=== PATIENT | female | born 1955 | race Caucasian/White ===

== ENCOUNTER 2018-06-04 14:20 | Inpatient (IN) | payer MEDICARE ==
[2018-06-04 14:51] LABS: Bilirubin Negative (Negative); Blood, Urine Negative (Negative); Clarity Clear (Clear); Glucose, Urine (Dipstick) Negative (Negative); Leukocyte Negative (Negative); Nitrite Negative (Negative); Protein, Urine (Dipstick) Negative (Neg-Trace); Urobilinogen 0.2 mg/dL (0.2-1.0)
--- NOTE | 2018-06-04 16:31 | RAD ---
2 VIEW CHEST: Date: 06/04/18 COMPARISON: 07/09/16. INDICATION: Cough with chills. FINDINGS: There is a right chest port remaining in place. No lobar consolidation, effusion, or discrete pneumot horax. Cardiac silhouette is normal size. Osseous structures intact. IMPRESSION: No focal consolidation. POS: TPC
[2018-06-04 16:53] LABS: Hemoglobin 10.9 g/dL (12.0-16.0); Mean Corpuscular HGB CONC 31.9 g/dL (32.0-36.0); Mean Corpuscular Hemoglobin 29.3 pg (27.0-31.0); Mean Corpuscular Volume 91.9 fL (78.0-98.0); Mean Platelet Volume 6.3 fL (7.4-10.4); Platelet Count 150 thou/uL (130-400); RBC Distribution Width 12.1 % (11.5-14.5); Red Blood Cell (RBC) Count 3.73 mill/uL (4.20-5.40); White Blood Cell (WBC) Count 2.2 thou/uL (4.8-10.8)
[2018-06-04 17:01] LABS: ALT (SGPT) 11 U/L (8-55); AST (SGOT) 13 U/L (5-34); Albumin 3.4 g/dL (3.5-5.0); Alkaline Phosphatase 76 U/L (40-150); Anion Gap 12 mmol/L (10-20); BUN (Urea Nitrogen) 9 mg/dL (9.8-20.1); Bilirubin, Total 0.4 mg/dL (0.2-1.2); Calc. Creatinine Clearance 0 mL/min (70-130); Calcium 7.8 mg/dL (7.8-10.44); Carbon Dioxide 20 mmol/L (22-29); Chloride 112 mmol/L (98-107); Estimated GFR-MDRD 90; Globulin 2.7 g/dL (2.4-3.5); Glucose 83 mg/dL (70-105); Potassium 3.8 mmol/L (3.5-5.1); Protein, Total 6.1 g/dL (6.0-8.3); Sodium 140 mmol/L (136-145)
[2018-06-04 17:07] LABS: Band 3 % (5-11); Eosinophils 10 % (0-10); Lymphocytes 34 % (21-51); MDiff Complete? YES; Monocytes 28 % (0-10); Neutrophil 13 % (42-75); Platelet Morphology Comment Appears Adequate; RBC Morphology Normal; Reactive Lymphocytes 10 % (0-10)
[2018-06-04] MEDS ORDERED: Aluminum & Magnesium Hydroxide 60 ML, diphenhydrAMINE 150 MG, Lidocaine 2% Viscous Solu... SSW PRN (20:42)
[2018-06-04 20:50] LABS: Troponin I Less than 0.010 ng/mL (< 0.028)
[2018-06-04] MEDS: diphenhydrAMINE 25 MG CAP PO PRN (21:39)
[2018-06-05 00:05] LABS: Troponin I Less than 0.010 ng/mL (< 0.028)
[2018-06-05] MEDS ORDERED: Sodium Chloride 0.9% 1,000 ML IV SCH (09:00)
[2018-06-05] MEDS ORDERED: Ondansetron PF 4 MG/2 ML Vial IVP PRN (09:15)
[2018-06-05] MEDS ORDERED: Calcium Carbonate 500 MG ChewTAB PO PRN (09:15)
[2018-06-05] MEDS ORDERED: Bisacodyl 10 MG SUPP PR PRN ×2 (09:15→09:25)
[2018-06-05] MEDS ORDERED: Ondansetron ODT 4 MG TAB PO PRN (09:15)
[2018-06-05] MEDS ORDERED: Eucerin (Mineral Oil/Petrolatum,White) 30 gm Jar TOP PRN (09:24)
[2018-06-05] MEDS ORDERED: Milk Of Magnesia 30 ML UDCUP PO PRN (09:25)
[2018-06-05] MEDS ORDERED: Polyethylene Glycol 3350 17 GM Packet PO PRN (09:25)
[2018-06-05] MEDS ORDERED: diphenhydrAMINE 25 MG CAP PO PRN (09:27)
[2018-06-05 09:35] LABS: Albumin 4.1 g/dL (3.5-5.0); Anion Gap 16 mmol/L (10-20); BUN (Urea Nitrogen) 12 mg/dL (9.8-20.1); BUN/Creatinine Ratio 15.58; Calc. Creatinine Clearance 92 mL/min (70-130); Calcium 9.3 mg/dL (7.8-10.44); Carbon Dioxide 21 mmol/L (22-29); Chloride 108 mmol/L (98-107); Estimated GFR-MDRD 76; Glucose 96 mg/dL (70-105); Magnesium 2.2 mg/dL (1.6-2.6); Phosphorus 3.3 mg/dL (2.3-4.7); Potassium 4.9 mmol/L (3.5-5.1); Sodium 140 mmol/L (136-145)
[2018-06-05 09:49] LABS: Hemoglobin 13.7 g/dL (12.0-16.0); Mean Corpuscular HGB CONC 32.7 g/dL (32.0-36.0); Mean Corpuscular Hemoglobin 29.7 pg (27.0-31.0); Mean Corpuscular Volume 90.8 fL (78.0-98.0); Mean Platelet Volume 7.8 fL (7.4-10.4); Platelet Count 165 thou/uL (130-400); RBC Distribution Width 11.6 % (11.5-14.5); Red Blood Cell (RBC) Count 4.61 mill/uL (4.20-5.40); White Blood Cell (WBC) Count 2.6 thou/uL (4.8-10.8)
[2018-06-05 10:08] LABS: Folate (Folic Acid) 12.9 ng/mL (7.0-31.4)
--- NOTE | 2018-06-05 10:17 | HP ---
PRIMARY CARE PHYSICIAN: The patient has seen Dr. Pineda in the past. She follows oncologist at [facility]. CHIEF COMPLAINT: Generalized weakness with cough, shortness of breath, fever, and chest pain of 2 days duration. The patient also had a syncopal episode yesterday. HISTORY OF PRESENT ILLNESS: The patient is a 62-year-old female with idiopathic neutropenia, presented to the emergency room with above symptoms. Over the past week or so, the patient has been feeling generally weak and fatigued. She gets lightheaded most of the time when she stands up and when she bends down to pick up attendant something. Over the last 2 days, the patient has productive cough along with rhinorrhea, nasal congestion, and chills. Her granddaughter had similar symptoms. She has been feeling generally weak and fatigued. She also developed sores on her left side of the lips over the last 3 to 4 days. She has not been eating and drinking well. Yesterday, the patient had a syncopal episode, where she gradually landed on the floor without significant injuries. She was alone at that time. She does not know how long she passed out for. She was diaphoretic, lightheaded, and had some ringing in the ears prior to syncope. She denies any double vision, blurring of vision, facial asymmetry, weakness, or numbness of any of her extremities. In the emergency room, initial vital signs showed temperature 98.7, respirations of 16, pulse of 84 with a blood pressure 120/78. Orthostatic vitals were positive in the emergency room. She received 1 L of IV fluid. EKG showed nonspecific ST-T wave changes. PAST MEDICAL HISTORY: 1. Idiopathic neutropenia, followed by [facility]. 2. Neuropathy of unclear etiology. 3. Hiatal hernia. 4. Fibromyalgia. 5. Suspected autoimmune disease, followed at [facility]. PAST SURGICAL HISTORY: 1. Bone marrow aspiration at [facility]. 2. . 3. Hysterectomy. 4. Tumor removal from the back of her head. 5. Anxiety and depression. ALLERGIES: THE PATIENT IS ALLERGIC TO PENICILLIN AND SULFA. CURRENT HOME MEDICATIONS: 1. Zoloft 100 mg daily. 2. Aleve as needed. SOCIAL HISTORY: The patient currently lives at home with her family. She denies any alcohol, tobacco, or drug use. FAMILY HISTORY: Negative for premature coronary artery disease. REVIEW OF SYSTEMS: The patient has on and off chest discomfort, which is dull with some numbness in the left arm. She denies any focal neurologic deficit. She has on and off nausea with diarrhea and constipation. All other review of systems were reviewed and were found negative. PHYSICAL EXAMINATION: VITAL SIGNS: As discussed above. GENERAL: A 62-year-old female, ill-appearing, in no apparent distress. HEENT: Head, atraumatic and normocephalic. Sclerae anicteric. Erythematous ulcers over the left side of the lip noted. There were questionable white patches on the backside of the tongue. NECK: Supple. No JVD appreciated. No carotid bruit. LUNGS: Clear to auscultation bilaterally. No wheezing, rales, or rhonchi. HEART: S1 and S2 present. Regular rate and rhythm. No rubs or gallops appreciated. ABDOMEN : Soft and nontender. Bowel sounds present. EXTREMITIES: No edema or calf tenderness. NEUROLOGY: Grossly nonfocal. Moves all 4 extremities. The patient was generally weak. Power was 4 to 5/5 in all extremities. SKIN: Warm and dry. LYMPH NODE: No palpable lymph nodes in the neck. PERIPHERAL VASCULAR: Radial pulses palpable bilaterally. MUSCULOSKELETAL: No joint swelling or tenderness. LABORATORY FINDINGS: WBC 2.2 with 13% neutrophil and 3% bandemia, platelet count 150 with hemoglobin 10.9, hematocrit 34.3. Chemistry showed sodium 140, potassium 3.8, chloride 112, bicarb 20, BUN 9, and creatinine 0.67. Troponin was negative. Albumin 3.4. Urinalysis was negative. Influenza testing was negative. Chest x-ray by my review was negative for infiltrate. EKG by my review as discussed above. IMPRESSION: 1. Neutropenic fever of unclear etiology, suspected viral etiology. 2. Syncope secondary to orthostatic hypotension. The patient had positive orthostatic vital signs in the emergency room. Her blood pressure dropped to 89/64 on standing along with dizziness. 3. Atypical chest discomfort with negative troponins. 4. Idiopathic neutropenia, followed at [facility]. 5. Chronic kidney disease, stage 2. 6. Mild protein-calorie malnutrition. 7. Generalized weakness, multifactorial. 8. Anemia, normochromic normocytic. 9. Anxiety. 10. Depression, mild, stable. The patient denies any suicidal ideation. 11. Neuropathy of unclear etiology. 12. Hiatal hernia. 13. Suspected irritable bowel syndrome. PLAN: The patient will be monitored in the telemetry unit due to chest discomfort. Echocardiogram will be obtained. We will start her on acyclovir. Infectious Disease and Oncology will be consulted. IV fluids. We will check orthostatic vitals every morning. The patient will require 3 to 4 days for stabilization given her significant weakness and positive orthostatic vital signs. Neutropenic precautions due to significant neutropenia. Vital signs every 4 hourly. We will check vitamin B12, folic acid, TSH, respiratory viral panel, and cortisol. Plan of care was discussed with the patient in detail. She stated understanding. Job ID: [id number]
[2018-06-05] MEDS: Sodium Chloride 0.9% 1,000 ML IV SCH ×2 (10:20→20:58)
[2018-06-05 10:41] LABS: Platelet Morphology Comment PLT clumps seen-ADEQ
[2018-06-05 11:07] LABS: Eosinophils 6 % (0-10); Lymphocytes 35 % (21-51); MDiff Complete? YES; Monocytes 24 % (0-10); Neutrophil 10 % (42-75); Reactive Lymphocytes 23 % (0-10)
--- NOTE | 2018-06-05 13:29 | CON ---
DATE OF CONSULTATION: 06/05/2018 HISTORY OF PRESENT ILLNESS: Ms. Morris is a 62-year-old female with a history of idiopathic neutropenia, which is long-standing since at least . She has been seen in our clinic as well as at [facility] and at [facility] over the last several years for this. She is intolerant to Neupogen, has taken in the past and states it makes her "deathly ill." She presents with 3-4 days of complains of oral ulcers as well as fever at home and was neutropenic in the emergency room. She states that the ulcer on the left side of her mouth is significant and quite painful. She has not been able to take p.o. intake and she has lost some weight. She has had some diarrhea off and on. In the past, she has required IV gammaglobulin for prophylaxis, but she had not had this in several years. She is difficulty with IVs and does have a Mediport, but it is currently not accessed. PAST MEDICAL HISTORY: 1. Idiopathic neutropenia, longstanding. Her last infection was 9 months ago. 2. Neuropathy. 3. Fibromyalgia. 4. Probable autoimmune disease of not otherwise specified. MEDICATIONS: 1. Tylenol p.r.n. 2. Acyclovir 400 mg IV q.8 hours. 3. Dulcolax 10 mg [place] daily p.r.n. 4. Tums p.r.n. 5. Benadryl 25 mg p.o. q.4 hours p.r.n. 6. Folic acid 1 mg p.o. daily. 7. Milk of magnesia 30 mL p.o. daily p.r.n. 8. Mineral oil p.r.n. 9. Multivitamins 1 tab p.o. daily. 10. Zofran 4 mg p.o. q.6 hours p.r.n. 11. Zofran 4 mg IV q.6 hours p.r.n. 12. MiraLax p.r.n. 13. Senakot 1 tab p.o. b.i.d. 14. Zoloft 100 mg p.o. at bedtime. ALLERGIES: PENICILLINS AND SULFA. SOCIAL HISTORY: She denies tobacco, alcohol. She lives here to be closer to her daughter and son-in-law, her son-in-law is in bindery worker school and they will be moving in July or August back to [place]. FAMILY HISTORY: Her mother did of myelodysplastic syndrome. REVIEW OF SYSTEMS: A 10-point review of systems is positive for intermittent chest pain as well as shortness of breath. She has had hypotension and low blood pressure when she stands up. She has had poor oral intake. She has had diarrhea and constipation from time to time. Her weight has been stable. PHYSICAL EXAMINATION: VITAL SIGNS: Temperature is 97.9, pulse 75, respirations 12, 02 saturations 95% on room air, blood pressure sitting 107/55, blood pressure standing 97/50. GENERAL: She is in no acute distress, quite pleasant. HEENT: Extraocular muscles are intact. Pupils are reactive to light. She does have oral ulcers. NECK: Supple without lymphadenopathy. CARDIOVASCULAR: Regular rhythm. LUNGS: Clear to auscultation bilaterally. EXTREMITIES: No edema, no clubbing, no ecchymosis. LABORATORY DATA: White blood cell count 2.6, 10% neutrophils, 35% lymphocytes, 23% reactive lymphocytes, 24% monocytes. Hemoglobin 13.7, platelets 165. Her electrolytes are normal with the exception of a chloride of 108 and CO2 of 21, B12 1517, folic acid 12.9, TSH 0.8, cortisol 11, albumin 4.1. IMAGING: Chest x-ray done in the emergency room shows no acute cardiopulmonary process. ASSESSMENT: Ms. Morris is a 62-year-old female with: 1. Idiopathic neutropenia. 2. Autoimmune disease, not otherwise specified. 3. History of hypogammaglobulinemia. 4. Oral ulcers with febrile neutropenia, possibly viral. 5. Intolerant to Neupogen. PLAN: 1. She is already on acyclovir. 2. I would recommend we add IV Levaquin just in case she has any bacterial infection and since she is in the hospital, it should be reasonable. 3. We will not give her Neupogen unless she becomes unstable. 4. Check immunoglobulins to make sure she does not need IVIG. 5. I would recommend we access her Mediport. 6. We will follow with you. Job ID: [id number]
[2018-06-05] MEDS: metroNIDAZOLE 500 MG in Premix Bag 1 BAG IVPB SCH (18:18)
--- NOTE | 2018-06-05 20:01 | CON ---
DATE OF CONSULTATION: 06/05/2018 REASON FOR CONSULTATION: Neutropenia, fever, and mouth ulcers. HISTORY OF PRESENT ILLNESS: A 62-year-old, who I had seen in 2014, who has a history of chronic neutropenia since the age of 23. The patient has had multiple consultations with various [employer] in [facility] and elsewhere with 5 or 6 bone marrow biopsies. I have reviewed those biopsies and one of them apparently, diagnosis with a mild myelodysplastic syndrome, but according to the patient at [facility], they felt that the changes were more likely due to the Neupogen administration than true MDS. She has in the past received Neupogen as well as immunoglobulin according to records at [facility]. Her maximum neutrophil count went up to 16,000 and will vary anywhere from 100 to mid [address] to 2500s depending on the schedule of her Neupogen administration. She also has had immunoglobulin administration in the past with various results, the final diagnosis is not clear, if it is due to production deficiency or peripheral destruction. One of the notes from the [facility] passenger train at [facility] observes that in 1 episode there was a rapid decrease from 16,000, down to 40 in her neutrophil count, which would suggest that she was having peripheral destruction of the cells. For that reason, immunoglobulin has been attempted in the past again with various results. She has not been to [facility] after she went back to see the [facility] oncologist. At this time, she is admitted with fever, chest pain, and syncopal event. She felt weak and fatigued. She had recrudescence of mouth sores with some productive cough. Apparently, there was a near syncopal event without injuries. No headaches. No visual symptoms. A little bit of cough. No chest pain. No abdominal pain or diarrhea. No genitourinary symptoms. PAST MEDICAL HISTORY: Neutropenia either autoimmune or idiopathic variously treated with Neupogen and immunoglobulin by 5 or 6 different hematologists in the past. She has had 5 or 6 different bone marrow biopsies and suspicion was that she had autoimmune neutropenia in view of the rapid destruction of neutrophils that has been documented in the past. Past surgical history also includes hysterectomy, , some tumor in the skin of the back of the scalp, anxiety, and depression. ALLERGIES: PENICILLIN AND SULFA. THE ALLERGY OF PENICILLIN IS NOT WELL DOCUMENTED. I AM NOT SURE THAT SHE IS TRULY ALLERGIC TO IT. SOCIAL HISTORY: Lives with family. No smoking. No drug use. FAMILY HISTORY: Noncontributory. PHYSICAL EXAMINATION: VITAL SIGNS: Current exam; T-max 98.9, blood pressure 120/69, pulse 75, respirations 12 to 16, and O2 saturation 95% to 96%. SKIN: Without any skin lesions. The patient has a peripheral IV access and is voiding in the toilet. No lymphadenopathy. HEENT: Ocular movements conjugate. Nasal passages patent. Oral cavity with a fairly large irregular deep ulcer in the left side of the under lip region. No gum lesions. No oropharyngeal lesions noted. NECK: Supple. LUNGS: Symmetric clear breath sounds. HEART: S1 and S2. Regular rate. The right subclavian port is accessed, but no inflammatory changes or tenderness. ABDOMEN: Soft, not distended or tender. No ascites. No bladder distention. EXTREMITIES: No joint inflammatory activity. No edema. Pulses 1+ in dorsalis pedis. She moves extremities equally. Cognitive function appears to be intact. NEUROLOGIC: Nonfocal. LABORATORY DATA: White cell count is 2.2 and now 2.6 with a total neutrophil count of about 260. Sodium 140 and creatinine 0.77. Liver profile normal. Albumin 3.4. Vitamin B12 normal. Urinalysis normal. Influenza test was negative. Chest x-ray with no focal consolidation. She has a CT of chest in 2016 with no evidence of pulmonary embolism. There is a brain MRI from April 2015 with normal findings. ASSESSMENT AND PLAN: Chronic neutropenia, which in the past has variously responded to Neupogen and immunoglobulin. Some elements of it have an autoimmune features with rapid decrease in neutrophils overnight almost. She has had numerous bone marrow biopsies, various hematologists. Has had issues with obtaining immunoglobulin and Neupogen, has felt adverse reactions from Neupogen and lately the [facility] has reportedly contraindicated Neupogen administration to her. It is not clear what the management regimen they had recommended for her, but now she presents with severe neutropenia again and I probably would administer Neupogen; however, she declines it. In the past, there is obvious clinical response to Neupogen administration. The patient has those ulcers, which will be sampled for herpes simplex PCR and we will continue antimicrobial therapy and follow up. She may need anaerobic coverage added to her current antimicrobial or combination of cefepime with Flagyl that probably would work better than levofloxacin. Job ID: [id number]
[2018-06-05] MEDS: Senokot S 8.6-50 MG TAB PO SCH (20:59)
[2018-06-05] MEDS: diphenhydrAMINE 25 MG CAP PO PRN (21:01)
[2018-06-05] MEDS: Cefepime 1 GM in Sodium Chloride 0.9% 100 ML IVPB SCH (21:02)
[2018-06-06] MEDS: metroNIDAZOLE 500 MG in Premix Bag 1 BAG IVPB SCH (03:10)
[2018-06-06] MEDS: Sodium Chloride 0.9% 1,000 ML IV SCH ×3 (04:20→13:58)
[2018-06-06] MEDS: Cefepime 1 GM in Sodium Chloride 0.9% 100 ML IVPB SCH (05:31)
[2018-06-06 06:25] LABS: Reticulocyte Count 0.7 % (0.5-1.5)
[2018-06-06 06:36] LABS: Hemoglobin 12.8 g/dL (12.0-16.0); Lymphocytes 58 % (21-51); MDiff Complete? YES; Mean Corpuscular HGB CONC 33.5 g/dL (32.0-36.0); Mean Corpuscular Volume 89.7 fL (78.0-98.0); Monocytes 6 % (0-10); Neutrophil 36 % (42-75); Platelet Count 188 thou/uL (130-400); Platelet Morphology Comment Appears Adequate; RBC Distribution Width 11.3 % (11.5-14.5); RBC Morphology Normal; Red Blood Cell (RBC) Count 4.25 mill/uL (4.20-5.40); White Blood Cell (WBC) Count 2.8 thou/uL (4.8-10.8)
[2018-06-06 06:39] LABS: Albumin 3.4 g/dL (3.5-5.0); Anion Gap 13 mmol/L (10-20); BUN (Urea Nitrogen) 10 mg/dL (9.8-20.1); BUN/Creatinine Ratio 12.99; Calc. Creatinine Clearance 92 mL/min (70-130); Calcium 8.7 mg/dL (7.8-10.44); Carbon Dioxide 19 mmol/L (22-29); Chloride 110 mmol/L (98-107); Estimated GFR-MDRD 76; Glucose 97 mg/dL (70-105); Magnesium 2.4 mg/dL (1.6-2.6); Phosphorus 3.4 mg/dL (2.3-4.7); Sodium 137 mmol/L (136-145)
[2018-06-06] MEDS ORDERED: diphenhydrAMINE 25 MG CAP PO PRN (08:19)
[2018-06-06] MEDS ORDERED: HYDROcodone/Acetaminophen 5/325 mg Tablet PO PRN (08:19)
[2018-06-06] MEDS ORDERED: Ibuprofen 200 MG TAB PO PRN (08:19)
[2018-06-06] MEDS ORDERED: Glycerin Adult Supp. (12 ct jar) PR PRN (08:19)
[2018-06-06] MEDS ORDERED: Naproxen 500 MG TAB PO PRN (08:21)
[2018-06-06] MEDS ORDERED: Cyanocobalamin (Vitamin B-12) 1,000 MCG TAB PO SCH (09:00)
[2018-06-06] MEDS ORDERED: Meropenem 1 GM in Sodium Chloride 0.9% 100 ML IVPB SCH (09:00)
[2018-06-06] MEDS: MEROPENEM 1 GM/50 ML 1 GM in Premix Bag 1 BAG IVPB SCH ×2 (09:58→17:49)
[2018-06-06] MEDS: Folic Acid 1 MG TAB PO SCH (09:59)
[2018-06-06] MEDS: Senokot S 8.6-50 MG TAB PO SCH ×2 (10:02→22:05)
[2018-06-06] MEDS: Multivit, Therapeutic 1 TAB PO SCH (10:10)
--- NOTE | 2018-06-06 16:35 | PDOC.PN ---
- Subjective Encounter Start Date: 06/06/18 Encounter Start Time: 08:00 Patient seen and examined for Neutropenic fever. Headache after flagyl initiation per patient. No focal deficits. Nausea +. No BM. No new complaints. No overnight events - Objective Resuscitation Status - Order Detail: 06/05/18 09:15 Resuscitation Status Routine Resuscitation Status: FULL: Full Resuscitation MAR Reviewed: Yes Vital Signs & Weight: Vital Signs (12 hours) Temp Pulse Resp BP BP BP Pulse Ox 06/06/18 11:44 98.1 F 74 16 110/59 L 95 06/06/18 09:48 78 107/62 101/59 L 100/59 L 91 L 06/06/18 08:30 67 18 107/62 91 L Weight Weight 149 lb 12.8 oz I&O: 06/05/18 06/06/18 06/07/18 06:59 06:59 06:59 Intake Total 480 1560 Output Total 400 1600 Balance 80 -40 Result Diagrams: 06/06/18 05:48 06/06/18 05:48 EKG Reviewed by me: Yes (Tele SR) Phys Exam - Physical Examination Constitutional: NAD Neck: no JVD Respiratory: no wheezing, no rales, no rhonchi Symmetrical, no accessory muscle use Cardiovascular: RRR, no rub no heaves/pulsations Gastrointestinal: soft, non-tender, no distention, positive bowel sounds Musculoskeletal: no edema, pulses present Neurological: non-focal, normal sensation, moves all 4 limbs Psychiatric: normal affect, A&O x 3 Skin: no rash Deviation from normal: unchanged lip lesion Dx/Plan - Plan out of bed/ambulate, DVT proph w/SCDs 1. Neutropenic fever. 2. Syncope secondary to orthostatic hypotension. 3. Atypical chest discomfort with negative troponins. 4. Idiopathic neutropenia, followed at [facility]. 5. Chronic kidney disease, stage 2. 6. Mild protein-calorie malnutrition. 7. Generalized weakness, multifactorial. 8. Anemia, normochromic normocytic. 9. Anxiety. 10. Depression, mild, stable. 11. Neuropathy of unclear etiology. 12. Hiatal hernia. 13. Suspected irritable bowel syndrome. 14. Headache ?etio PLAN: Echo reviewed Change Flagyl and Cefepime to IV Meropenem AM labs Await HSV Cont Acyclovir Reduce IVF Ambulate Review of Systems - Review of Systems Respiratory: negative: Cough, Dry, Shortness of Breath, Hemoptysis, SOB with Excertion, Pleuritic Pain, Sputum, Wheezing Cardiovascular: negative: chest pain, palpitations, orthopnea, paroxysmal nocturnal dyspnea, edema, light headedness, other - Medications/Allergies Allergies/Adverse Reactions: Allergies Allergy/AdvReac Type Severity Reaction Status Date / Time Penicillins Allergy Verified 06/04/18 23:42 Sulfa (Sulfonamide Allergy Verified 06/04/18 23:42 Antibiotics) Medications: Current Medications Acetaminophen (Tylenol) 650 mg PO Q4H PRN PRN Reason: Headache/Fever/Mild Pain (1-3) Hydrocodone Bitart/Acetaminophen ([place] 5/325) 1 tab PO Q6H PRN PRN Reason: Severe Pain (7-10) Bisacodyl (Dulcolax) 10 mg [place] DAILYPRN PRN PRN Reason: Constipation Calcium Carbonate (Tums) 1,000 mg PO Q4H PRN PRN Reason: Heartburn or Indigestion Al Hydroxide/Mg Hydroxide 60 ml/ Diphenhydramine HCl 150 mg / Lidocaine HCl 60 ml/Nystatin 6,000,000 units 0 ml SSW PRN PRN PRN Reason: Mouth Irritation Diphenhydramine HCl (Benadryl) 25 mg PO Q6H PRN PRN Reason: Itching & Insomnia Folic Acid (Folvite) 1 mg PO DAILY [facility] Last Admin: 06/06/18 09:59 Dose: 1 mg Glycerin (Adult Glycerin) 1 each [place] Q24H PRN PRN Reason: Constipation Acyclovir Sodium 400 mg/ (Sodium Chloride) 108 mls @ 108 mls/hr IVPB Q8HR [facility] Last Admin: 06/06/18 13:57 Dose: 108 mls Sodium Chloride (Normal Saline 0.9%) 1,000 mls @ 70 mls/hr IV .[id number] [facility] Last Admin: 06/06/18 13:58 Dose: 1,000 mls Meropenem 1 gm/ Device 50 mls @ 100 mls/hr IVPB [id number] [facility] Last Admin: 06/06/18 09:58 Dose: 50 mls Magnesium Hydroxide (Milk Of Magnesium) 30 ml PO DAILYPRN PRN PRN Reason: Constipation Mineral Oil/White Petrolatum (Eucerin Cream) 0 gm TOP BIDPRN PRN PRN Reason: Dry Skin Miscellaneous Medication (Pharmacy To Dose) 1 each IVPB .RENAL PRN PRN Reason: Pharmacy to dose Multivitamins (Theragran) 1 tab PO DAILY [facility] Last Admin: 06/06/18 10:10 Dose: 1 tab Naproxen (Naprosyn) 500 mg PO BID PRN PRN Reason: Moderate Pain (4-6) Ondansetron HCl (Zofran Odt) 4 mg PO Q6H PRN PRN Reason: Nausea/Vomiting Ondansetron HCl (Zofran) 4 mg IVP Q6H PRN PRN Reason: Nausea/Vomiting Pantoprazole Sodium (Protonix) 40 mg PO DAILY [facility] Last Admin: 06/06/18 10:00 Dose: 40 mg Polyethylene Glycol (Miralax) 17 gm PO DAILY PRN PRN Reason: Constipation Senna/Docusate Sodium (Senokot S) 1 tab PO BID [facility] Last Admin: 06/06/18 10:02 Dose: Not Given Sertraline HCl (Zoloft) 100 mg PO HS [facility] Last Admin: 06/05/18 20:59 Dose: 100 mg Sodium Chloride (Flush - Normal Saline) 10 ml IVF Q12HR [facility] Last Admin: 06/06/18 10:11 Dose: Not Given Sodium Chloride (Flush - Normal Saline) 10 ml IVF PRN PRN PRN Reason: Saline Flush
[2018-06-06] MEDS: Acetaminophen 325 MG TAB PO PRN (22:07)
[2018-06-07] MEDS: MEROPENEM 1 GM/50 ML 1 GM in Premix Bag 1 BAG IVPB SCH ×3 (01:21→17:02)
[2018-06-07 07:09] LABS: Hemoglobin 12.2 g/dL (12.0-16.0); Mean Corpuscular HGB CONC 33.8 g/dL (32.0-36.0); Mean Corpuscular Hemoglobin 31.1 pg (27.0-31.0); Mean Corpuscular Volume 91.9 fL (78.0-98.0); Mean Platelet Volume 7.5 fL (7.4-10.4); Platelet Count 198 thou/uL (130-400); RBC Distribution Width 11.4 % (11.5-14.5); Red Blood Cell (RBC) Count 3.94 mill/uL (4.20-5.40)
[2018-06-07 07:10] LABS: ALT (SGPT) 8 U/L (8-55); AST (SGOT) 13 U/L (5-34); Albumin 3.5 g/dL (3.4-4.8); Alkaline Phosphatase 76 U/L (40-150); Anion Gap 10 mmol/L (10-20); BUN (Urea Nitrogen) 9 mg/dL (9.8-20.1); Bilirubin, Total 0.2 mg/dL (0.2-1.2); Calc. Creatinine Clearance 86 mL/min (70-130); Carbon Dioxide 26 mmol/L (23-31); Chloride 109 mmol/L (98-107); Estimated GFR-MDRD 80; Globulin 3.1 g/dL (2.4-3.5); Glucose 104 mg/dL (80-115); Potassium 4.7 mmol/L (3.5-5.1); Protein, Total 6.6 g/dL (6.0-8.3); Sodium 140 mmol/L (136-145)
[2018-06-07] MEDS: Senokot S 8.6-50 MG TAB PO SCH (09:06)
[2018-06-07] MEDS: Folic Acid 1 MG TAB PO SCH (09:06)
[2018-06-07] MEDS: Multivit, Therapeutic 1 TAB PO SCH (09:06)
[2018-06-07 09:15] LABS: Band 1 % (5-11); Eosinophils 7 % (0-10); Lymphocytes 70 % (21-51); MDiff Complete? YES; Monocytes 11 % (0-10); Neutrophil 11 % (42-75); Platelet Morphology Comment Appears Adequate
[2018-06-07] MEDS: Acetaminophen 325 MG TAB PO PRN (10:17)
[2018-06-07] MEDS: Sodium Chloride 0.9% 1,000 ML IV SCH (11:12)
[2018-06-07 16:40] VITALS: BP 108/60; TEMP 98.7
--- NOTE | 2018-06-07 19:00 | DIS ---
DATE OF ADMISSION: 06/05/2018 DATE OF DISCHARGE: 06/07/2018 DISCHARGE DISPOSITION: Home. FOLLOWUP: 1. Follow up with primary care physician, Dr. Tristen Pineda in 1 week. 2. Follow up with primary oncologist at [facility] in 1 week. The patient was seen and examined on the day of discharge. Denies any new complaints. No chest pain, shortness of breath, fever or chills reported. INPATIENT CONSULT: 1. Infectious Disease, Dr. Weir. 2. Oncology, Dr. Caceres. BRIEF HOSPITAL COURSE: The patient is a 62-year-old female with idiopathic neutropenia, followed at [facility], presented to the hospital with generalized weakness with cough, shortness of breath, fever and chest pain of 2 days duration. The patient had a syncopal episode the day before admission. Please refer to the history and physical dated 05 June 2018 for further details. The patient was admitted to the hospital with a diagnosis of neutropenic fever. She was placed on telemetry monitoring. Orthostatic vitals were positive in the emergency room. She was also started on IV acyclovir for oral ulceration. She was placed on cefepime and Flagyl for neutropenic fever. Due to worsening headache, probably from Flagyl, antibiotics were changed to meropenem. She was kept on neutropenic precautions. She was evaluated by Infectious Disease and Hematology. Overall, symptomatically, she feels much better. Her WBC count on the day of discharge is 3.0 with 11% neutrophil and 1% bandemia. Immunoglobulin G, A and M were normal. Echocardiogram showed left ventricular ejection fraction greater than 60% to 65% with normal right ventricular size and function. There was mild tricuspid regurgitation. Chest x-ray was negative for infiltrate. She has been cleared by consultants for discharge. She was advised to follow up with the primary oncologist at [facility]. FINAL DIAGNOSES: 1. Neutropenic fever. 2. Syncope secondary to orthostatic hypotension. No new episode. Orthostatic vitals negative. 3. Atypical chest discomfort with negative troponins. 4. Idiopathic neutropenia, followed at [facility]. 5. Chronic kidney disease, stage 2. 6. Mild protein-calorie malnutrition. 7. Generalized weakness, multifactorial. 8. Chronic anemia. 9. Anxiety. 10. Depression, mild, stable. 11. Neuropathy of unclear etiology. 12. Hiatal hernia. 13. Questionable irritable bowel syndrome. 14. Headache of unclear etiology, resolved after discontinuation of Flagyl. 15. Penicillin and sulfa allergy. 16. Mild protein-calorie malnutrition. 17. Mild tricuspid regurgitation. Plan of care was discussed with the patient in detail. She stated understanding. Job ID: [id number]
[2018-06-08 22:07] LABS: HSV 2 - DNA Negative (Negative)
== END 2018-06-07 17:30 | disposition home or self-care (01) | DRG 809 ==
LOC: SCSER 14:20 → 2SW 19:31 → OBSVTOIN 06-05 09:15 → 2NO 06-05 12:35
PROVIDERS: ADMIT Family Medicine; ATTEND Family Medicine
DX: D70.9 Neutropenia, unspecified (principal); E44.1 Mild protein-calorie malnutrition; R50.81 Fever presenting with conditions classified elsewhere; G62.9 Polyneuropathy, unspecified; F41.9 Anxiety disorder, unspecified; F32.9 Major depressive disorder, single episode, unspecified; I95.1 Orthostatic hypotension; R07.89 Other chest pain; N18.2 Chronic kidney disease, stage 2 (mild); D64.9 Anemia, unspecified; K44.9 Diaphragmatic hernia without obstruction or gangrene; K58.9 Irritable bowel syndrome, unspecified; R51 Headache; I07.1 Rheumatic tricuspid insufficiency; Z90.710 Acquired absence of both cervix and uterus; Z88.0 Allergy status to penicillin; Z88.2 Allergy status to sulfonamides
CPT/HCPCS: 36415; 71046; 80053; 80069; 81003; 82533; 82607; 82746; 83735; 84443; 84484; 85007; 85025; 85027; 85046; 87529; 87804; 93005; 93306; 94760; 96360; 96361; J0133; J0692; J1642; J1956; J2185; J7050; Q0163